=== PATIENT | female | born 1965 | race Caucasian/White ===

== ENCOUNTER 2017-08-15 15:39 | Emergency (ER) | payer SELFPAY ==
[2017-08-15 16:01] VITALS: BP 117/67
--- NOTE | 2017-08-15 16:07 | ED ---
Upper Extremity Pain - HPI Summary HPI Summary: 52 year old female presents with complains of right ankle pain/swelling and left hand pain after falling at work. - History of Current Complaint Chief Complaint: UCLowerExtremity Stated Complaint: FINGER INJURY Time Seen by Provider: 08/15/17 16:04 Hx Obtained From: Patient Mechanism Of Injury: Blunt Trauma, Fall From A Standing Position Onset/Duration: Started Hours Ago Timing: Constant Severity Initially: Moderate Severity Currently: Moderate - Allergies/Home Medications Allergies/Adverse Reactions: Allergies Allergy/AdvReac Type Severity Reaction Status Date / Time No Known Allergies Allergy Verified 08/15/17 16:01 PMH/Surg Hx/FS Hx/Imm Hx Endocrine/Hematology History: Denies: Hx Diabetes, Hx Thyroid Disease Cardiovascular History: Denies: Hx Hypertension, Hx Pacemaker/ICD Respiratory History: Denies: Hx Asthma, Hx Chronic Obstructive Pulmonary Disease (COPD) GI History: Denies: Hx Ulcer History: Denies: Hx Renal Disease Sensory History: Denies: Hx Hearing Aid Psychiatric History: Denies: Hx Panic Disorder - Surgical History Surgery Procedure, Year, and Place: X2 _ 2ND C SECTION ALSO HAD A TUBAL LIGATION. FOOT - as a child - STEPPED ON A NAIL Infectious Disease History: No Infectious Disease History: Denies: Hx Clostridium Difficile, Hx Hepatitis, Hx Human Immunodeficiency Virus (HIV), Hx of Known/Suspected MRSA, Hx Shingles, Hx Tuberculosis, Hx Known/ Suspected VRE, Hx Known/Suspected VRSA, History Other Infectious Disease, Traveled Outside the [place] in Last 30 Days - Family History Known Family History: Positive: Hypertension - Social History Alcohol Use: Rare Substance Use Type: Reports: None Smoking Status (MU): Never Smoked Tobacco Review of Systems Constitutional: Negative Eyes: Negative ENT: Negative Cardiovascular: Negative Respiratory: Negative Gastrointestinal: Negative Genitourinary: Negative Positive: Other - right ankle pain, left hand pain All Other Systems Reviewed And Are Negative: Yes Physical Exam Triage Information Reviewed: Yes Vital Signs On Initial Exam: Initial Vitals Temp Pulse Resp BP Pulse Ox 36.7 C 85 18 117/67 100 08/15/17 15:56 08/15/17 15:56 08/15/17 15:56 08/15/17 15:56 08/15/17 15:56 Vital Signs Reviewed: Yes Appearance: Positive: Well-Appearing Skin: Positive: Warm Head/Face: Positive: Normal Head/Face Inspection Eyes: Positive: Normal ENT: Positive: Normal ENT inspection Neck: Positive: Supple Respiratory/Lung Sounds: Positive: Clear to Auscultation Cardiovascular: Positive: Normal, S4 Musculoskeletal: Positive: Other - right ankle pain/swelling left hand pain Diagnostics - Vital Signs Vital Signs Temp Pulse Resp BP Pulse Ox 08/15/17 15:56 36.7 C 85 18 117/67 100 - Laboratory Lab Statement: Any lab studies that have been ordered have been reviewed, and results considered in the medical decision making process. Course/Dx - Diagnoses Provider Diagnoses: Right ankle sprain, Left hand pain Discharge - Discharge Plan Condition: Stable Disposition: HOME Prescriptions: Meloxicam [Mobic] 7.5 mg PO BID PC #30 tab Patient Education Materials: Ankle Sprain (ED), Hand Sprain (ED) Forms: *Work Release Referrals: Davon Villa MD [Medical Doctor] - Rodney Polanco MD [Medical Doctor] -
--- NOTE | 2017-08-15 16:36 | RAD ---
INDICATION: Right ankle injury. Fall. COMPARISON: None TECHNIQUE: AP, lateral, and oblique views were obtained. FINDINGS: The bony structures, joint spaces, and soft tissues are normal for age. IMPRESSION: NO ACUTE FRACTURE.
--- NOTE | 2017-08-15 16:38 | RAD ---
INDICATION: Right foot pain COMPARISON: None TECHNIQUE: AP, lateral, and oblique views were obtained. FINDINGS: The bony structures, joint spaces, and soft tissues are normal for age. IMPRESSION: NO ACUTE BONY FINDINGS.
--- NOTE | 2017-08-15 16:38 | RAD ---
INDICATION: Left hand injury. Fall. COMPARISON: None TECHNIQUE: AP, lateral, and oblique views were obtained. FINDINGS: The bony structures, joint spaces, and soft tissues are normal for age. IMPRESSION: NEGATIVE EXAMINATION.
== END 2017-08-15 16:55 | disposition home or self-care (01) ==
LOC: UCEAST 15:39
DX: S93.401A Sprain of unspecified ligament of right ankle, initial encounter (principal); W18.30XA Fall on same level, unspecified, initial encounter; Y93.9 Activity, unspecified; Y92.89 Other specified places as the place of occurrence of the external cause; Y99.0 Civilian activity done for income or pay; M79.642 Pain in left hand
CPT/HCPCS: 99213; G0463

== ENCOUNTER 2019-04-29 10:47 | Day surgery (SDC) | payer BC, OTHER ==
[~2019-04-29 10:47] MED LIST: Buffered Lidocaine 1% SYRIN* 1 ML/SYRINGE INTRADERM ONE; Lactated Ringers 1000 ML Bag* 1,000 ML IV SCH; Sodium Citrate/Citric Acid* 15 ML UDC PO ONE
[2019-04-29] MEDS ORDERED: Buffered Lidocaine 1% SYRIN* 1 ML/SYRINGE INTRADERM ONE (11:21)
[2019-04-29] MEDS ORDERED: Sodium Citrate/Citric Acid* 15 ML UDC ONE (11:21)
[2019-04-29] MEDS ORDERED: Succinylcholine* 20 MG/ML 10 ML VIAL ONE (12:58)
[2019-04-29] MEDS ORDERED: Gelfoam 12-7 ADSORBABL SPONGE* 1 EA SPONGE ONE (13:03)
[2019-04-29] MEDS ORDERED: Ofloxacin 0.3% (Ear Drop)* 5 ml BTL ONE (13:03)
[2019-04-29] MEDS ORDERED: Lidocaine 2% EPI 1:200000 MPF*10-20 ML VIAL ONE (13:19)
[2019-04-29] MEDS ORDERED: Propofol* 10 MG/ML 20 ML BTL ONE (13:20)
[2019-04-29] MEDS ORDERED: fentaNYL* 50 MCG/ML 2 ML VIAL (100 MCG VIAL) ONE ×2 (13:22→14:50)
[2019-04-29] MEDS ORDERED: Lidocaine 2% PF * 5 ML VIAL ONE (13:27)
[2019-04-29] MEDS ORDERED: EPINEPHRINE 1 MG/ML 1 ML VIAL ONE (13:42)
[2019-04-29] MEDS ORDERED: fentaNYL* 50 MCG/ML 2 ML VIAL (100 MCG VIAL) IV PRN (14:02)
[2019-04-29] MEDS ORDERED: Naloxone* 0.4 MG/ML 1 ML VIAL IV PRN (14:02)
[2019-04-29] MEDS ORDERED: Ondansetron INJ* 2 MG/ML VIAL IV PRN (14:02)
[2019-04-29] MEDS ORDERED: Phenylephrine 0.5% NASAL* BTL ONE (14:23)
[2019-04-29] MEDS ORDERED: Labetalol IV* 5 MG/ML 20 ML VIAL ONE (14:58)
[2019-04-29 15:48] VITALS: BP 144/82
--- NOTE | 2019-04-29 18:36 | OP ---
OPERATIVE REPORT: DATE OF OPERATION: 04/29/19 - SDS DATE OF : [birth year] SURGEON: Francisco Johnson MD ANESTHESIOLOGIST: Antonio Gutierrez DO ANESTHESIA: General. PRE-OP DIAGNOSIS: Right ear tympanic membrane perforation. POST-OP DIAGNOSIS: Right ear tympanic membrane perforation. OPERATIVE PROCEDURE: Right ear tympanoplasty with graft and submucosal resection of inferior turbinates. BRIEF HISTORY: This 53-year-old with history of right ear tympanic membrane perforation with symptoms of otorrhea occasionally. Persistent nasal congestion with difficulty breathing through the nose with nasal dyspnea without a deviated septum and hypertrophied turbinates, not improving with medical management. DESCRIPTION OF PROCEDURE: The patient was taken to the operating room, general anesthetic was given, the patient was intubated with an LMA. The ear was then examined under microscope. Perforation was noted. Margins of the perforation were fashioned up and the epithelium elevated. I then harvested a right cartilage conchal graft. This was shaped to 1.5 mm. The rest of the cartilage was then replaced in the conchal bowl and the incision was closed in a single layer. The middle ear was packed with Gelfoam and then subsequently underlay technique was used to place the graft. Further Gelfoam was placed laterally. Once the adequate packing was carried, the area was packed with ofloxacin ear drops and then a cotton ball was applied. We then turned our attention to the nose. Submucosal resection carried out using the Elmed forceps. Small incision was made. Submucosal elevation was carried out and subsequently the cauterization of the submucosal tissue including the inferior turbinate bone on both sides. Once this was done, the patient was then awakened, extubated, and sent to recovery room in stable condition. Instrument and sponge counts were correct. Blood loss minimal. [id number]/[facility] #: [id number] MTDD
== END 2019-04-29 16:00 | disposition home or self-care (01) ==
LOC: OR 10:47
PROVIDERS: ATTEND Otolaryngology
DX: H72.01 Central perforation of tympanic membrane, right ear (principal); J34.3 Hypertrophy of nasal turbinates; J31.0 Chronic rhinitis
CPT/HCPCS: A9270-GY; J0330; J2704; J3010

== ENCOUNTER 2019-10-09 06:07 | Emergency (ER) | payer BC ==
[2019-10-09] MEDS ORDERED: NS 0.9% 1000 ML** 1,000 ML IV ONE ×2 (06:17→08:27)
--- NOTE | 2019-10-09 06:17 | ED ---
Dizziness - HPI Summary HPI Summary: Patient is a 54-year-old male who presents emergency department for vertigo 3 days. Patient states she has a history of vertigo. Patient states she had tympanostomy tubes in the past and states that the whole and tympanic membrane never healed causing her vertigo. Patient states she had hole removed in April by ENT. Patient denies past medical history. Symptoms are moderate in severity. Associated symptoms of vomiting and headache. Patient denies chest pain, shortness of breath comes, tingling or weakness. Symptoms are moderate in severity. No current modifying factors. - History Of Current Complaint Chief Complaint: EDDizziness Stated Complaint: VERITGO PER PT Time Seen by Provider: 10/09/19 06:17 Hx Obtained From: Patient - Allergies/Home Medications Allergies/Adverse Reactions: Allergies Allergy/AdvReac Type Severity Reaction Status Date / Time No Known Allergies Allergy Verified 04/29/19 11:28 Home Medications: Home Medications Citalopram TAB* [CeleXA TAB*] 20 mg PO DAILY 10/09/19 [History Confirmed ] PMH/Surg Hx/FS Hx/Imm Hx Previously Healthy: Yes Endocrine/Hematology History: Denies: Hx Diabetes, Hx Thyroid Disease Cardiovascular History: Reports: Hx Valvular 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 PRINTER-FOUND WHILE 30 YRS AGO- NO F/U PER P Denies: Hx Hypertension, Hx Pacemaker/ICD, Other Cardiovascular Problems/ Disorders Respiratory History: Denies: Hx Asthma, Hx Chronic Obstructive Pulmonary Disease (COPD), Other Respiratory Problems/Disorders GI History: Denies: Hx Ulcer History: Denies: Hx Renal Disease Sensory History: Reports: Hx Contacts or Glasses - GLASSES-REPORTS DOES NOT WEAR Denies: Hx Hearing Aid Opthamlomology History: Reports: Hx Contacts or Glasses - GLASSES-REPORTS DOES NOT WEAR Neurological History: Reports: Other Neuro Impairments/Disorders - HX OF VERTIGO - LAST ABOUT 6 MONTHS AGO Psychiatric History: Denies: Hx Panic Disorder - Surgical History Surgery Procedure, Year, and Place: X2 _ 2ND C SECTION ALSO HAD A TUBAL [id number]. FOOT - as a child - STEPPED ON A NAIL-. RIGHT OVARY [id number]. RIGHT EAR TUBE PLACED-[facility]- OFFICE Hx Anesthesia Reactions: No Infectious Disease History: No Infectious Disease History: Denies: Hx Clostridium Difficile, Hx Hepatitis, Hx Human Immunodeficiency Virus (HIV), Hx of Known/Suspected MRSA, Hx Shingles, Hx Tuberculosis, Hx Known/ Suspected VRE, Hx Known/Suspected VRSA, History Other Infectious Disease, Traveled Outside the US in Last 30 Days - Family History Known Family History: Positive: Hypertension, Non-Contributory - Social History Occupation: Employed Full-time Lives: With Family Alcohol Use: None Substance Use Type: Reports: None Smoking Status (MU): Never Smoked Tobacco Have You Smoked in the Last Year: No Review of Systems Constitutional: Negative Negative: Fever, Chills Eyes: Negative ENT: Negative Cardiovascular: Negative Negative: Palpitations, Chest Pain Respiratory: Negative Positive: Vomiting, Nausea. Negative: Abdominal Pain Genitourinary: Negative Musculoskeletal: Negative Skin: Negative Neurological: Other - vertigo Positive: Headache All Other Systems Reviewed And Are Negative: Yes Physical Exam Triage Information Reviewed: Yes Vital Signs On Initial Exam: Initial Vitals Temp Pulse Resp BP Pulse Ox 98.0 F 78 18 185/109 97 10/09/19 06:09 10/09/19 06:09 10/09/19 06:09 10/09/19 06:09 10/09/19 06:09 Vital Signs Reviewed: Yes Appearance: Positive: Well-Nourished - Pt. sitting on side of bed vomiting when I walked into room. Skin: Positive: Warm, Dry Head/Face: Positive: Normal Head/Face Inspection Eyes: Positive: Normal, EOMI, HARRIS, Conjunctiva Clear Neck: Positive: Supple Respiratory/Lung Sounds: Positive: Clear to Auscultation, Breath Sounds Present Cardiovascular: Positive: Normal, RRR Musculoskeletal: Positive: Normal, Strength/ROM Intact Neurological: Positive: Normal, Alert, Oriented to Person Place, Time, CN Intact II-III Psychiatric: Positive: Affect/Mood Appropriate Procedures - Sedation Patient Received Moderate/Deep Sedation with Procedure: No Diagnostics - Vital Signs Vital Signs Temp Pulse Resp BP Pulse Ox 10/09/19 06:09 98.0 F 78 18 185/109 97 - Laboratory Result Diagrams: 10/09/19 07:09 10/09/19 07:09 Lab Statement: Any lab studies that have been ordered have been reviewed, and results considered in the medical decision making process. Dizzy Course/Dx - Course Course Of Treatment: Pt. presenting with vertigo x 3 days and a hx of vertigo. BP mildly elevated. No neuro deficits on exam. Meclizine, zofran and IV fluids ordered. Pening labs and ecg. ECG done at 0646 shows a sinus rhythm of 71bpm, normal axis, no ST elevation or depression. 0825: Pt. notes she is feeling a bit better and dizziness and h/a have improved. Pt. notes dizziness is worse when she closes her eyes. Pt. was ambulatory to the restroom but notes increased in sxs after walking. No ataxia. Labs show elevated glucose at 227. U/ A shows trace ketones and glucose. Labs otherwise unremarkable. BP improved. Will give another liter of fluids and tylenol. 0915: Pt. re-examined and is feeling a lot better. Pt. got up easily to bed and ambulated to bathroom down hallway. No ataxia or difficulty. BP improved 133/67. Will dc home with meclizine and zofran. To f.u with pcp in 2-3 days. Pt. notes her glucose has been running high. To increase fluids. To return to ER if sxs change or worsen. Pt. understands and agrees with plan. - Diagnoses Differential Diagnosis/HQI/PQRI: Benign Paroxysmal Positional Vertigo, CVA, Dysrhythmia, Meniere's Disease, Metabolic Abnormality Provider Diagnoses: Vertigo Discharge ED - Sign-Out/Discharge Documenting (check all that apply): Patient Departure - Discharge Plan Condition: Improved Disposition: HOME Prescriptions: Meclizine HCl [Dramamine Less Drowsy] 25 mg PO TID #20 tablet Ondansetron TAB* [Zofran 4 MG Tab*] 4 mg PO Q6H PRN #12 tab PRN Reason: Nausea Patient Education Materials: Vertigo (ED) Referrals: Echo Cadet MD [Medical Doctor] - Additional Instructions: Schedule follow up appointment with your PCP within 2-3 days for recheck Medication as directed Increase fluids and rest Change positions slowly Return to ER if symptoms change or worsen - Billing Disposition and Condition Condition: IMPROVED Disposition: Home - Attestation Statements Provider Attestation: I was available for consult. This patient was seen by the [facility]. The patient was not presented to, seen by, or examined by me. Scotty Morrison MD
--- OUTSIDE RECORDS SUMMARY | 2019-10-09 06:18 | XMS REPORT | Summary of Care ---
:1965 Author Organization [facility] Address [address] [place] [address] Care Team Providers Name Role Phone Echo Cadet Primary Care Provider Reason for Visit Reason Comments Depression Pt c/o difficulty sleeping, eating and very weepy since in July. Encounter Details Date Type Department Care Team Description 09/01/2019 Office Visit [place] Aleja Carranza, Depression, unspecified depression type (Primary Dx); Practice [facility] Grief reaction [address] [place] [address] [phone] Allergies No Known Allergiesdocumented as of this encounter (statuses as of 09/01/2019) Medications Medication Sig Dispensed Refills Start Date End Date Status ofloxacin (OCUFLOX) 0.3 1 Drop FOUR 0 Active % Ophthalmic Solution TIMES DAILY. ipratropium (ATROVENT) [place] 2 0 Active 0.06 % Nasal Solution Sprays in nose TWICE DAILY. citalopram (CELEXA) 20 Take 1 Tab 30 Tab 1 09/01/2019 Active MG Oral Tab by mouth DAILY. meclizine (ANTIVERT) 25 Take 25 mg 0 Discontinued MG Oral Tab by mouth 9 THREE TIMES DAILY NEEDED. hydrochlorothiazide Take 25 mg 0 Discontinued (HCTZ, ORETIC) 25 MG by mouth 9 Oral Tab DAILY. documented as of this encounter (statuses as of 09/01/2019) Active Problems Problem Noted Date Meniere's disease 07/02/2008 Overview: dx in [place] and followed by local nurologist in [place] since 2013--Dr. Polanco documented as of this encounter (statuses as of 09/01/2019) Social History Tobacco Use Types Packs/Day Years Used Date Never Smoker 0 Smokeless Tobacco: Never Used Alcohol Use Drinks/Week oz/Week Comments Yes 0 Standard drinks or equivalent 0.0 rare Sex Assigned at Date Recorded Not on file Job Start Date Occupation Industry Not on file Not on file Not on file Travel History Travel Start Travel End No recent travel history available. documented as of this encounter Last Filed Vital Signs Vital Sign Reading Time Taken Comments Blood Pressure 110/82 09/01/2019 8:15 AM EDT Pulse 64 09/01/2019 8:15 AM EDT Temperature - - Respiratory Rate - - Oxygen Saturation - - Inhaled Oxygen Concentration - - Weight 68 kg (150 lb) 09/01/2019 8:15 AM EDT Height 154.9 cm (5' 1") 09/01/2019 8:15 AM EDT Body Mass Index 28.34 09/01/2019 8:15 AM EDT documented in this encounter Patient Instructions Patient InstructionsAleja Meza FNP - 09/01/2019 8:20 AM EDTStart Celexa - use 1/2 pill for first 6 days then start whole pill Counseling recommended - check Hospice Follow up 4-6 weeks documented in this encounter Progress Notes Aleja Meza FNP - 09/01/2019 8:20 AM EDT PATIENT: Lexie Tavarez : 1965 DATE OF SERVICE: 09/01/2019 CHIEF COMPLAINT: Chief Complaint Patient presents with Depression Pt c/o difficulty sleeping, eating and very weepy since in July. Subjective HISTORY OF PRESENT ILLNESS: Lexie Tavarez is a 54-y.o. female. HPI New(returning) pt to office - c/o depression since spouse in July Past Medical History: Diagnosis Date Meniere's disease jul 2008 dx in [place] and followed by local nurologist in [place] since 2013--Dr. Polanco History reviewed. No pertinent family history. Current Outpatient Medications Medication Sig citalopram (CELEXA) 20 MG Oral Tab Take 1 Tab by mouth DAILY. ipratropium (ATROVENT) 0.06 % Nasal Solution Pendleton 2 Sprays in nose TWICE DAILY. ofloxacin (OCUFLOX) 0.3 % Ophthalmic Solution 1 Drop FOUR TIMES DAILY. No current facility-administered medications for this visit. No Known Allergies Social History Socioeconomic History Marital status: Spouse name: Not on file Number of children: Not on file Years of education: Not on file Highest education level: Not on file Occupational History Not on file Social Needs Financial resource strain: Not on file Food insecurity: Worry: Not on file Inability: Not on file Transportation needs: Medical: Not on file Non-medical: Not on file Tobacco Use Smoking status: Never Smoker Smokeless tobacco: Never Used Substance and Sexual Activity Alcohol use: Yes Alcohol/week: 0.0 standard drinks Comment: rare Drug use: No Sexual activity: Yes Partners: Male Lifestyle Physical activity: Days per week: Not on file Minutes per session: Not on file Stress: Not on file Relationships Social connections: Talks on phone: Not on file Gets together: Not on file Attends [employer] service: Not on file Active member of club or organization: Not on file Attends meetings of clubs or organizations: Not on file Relationship status: Not on file Intimate partner violence: Fear of current or ex partner: Not on file Emotionally abused: Not on file Physically abused: Not on file Forced sexual activity: Not on file Other Topics Concern Back Care Not Asked Bike Helmet Not Asked Blood Transfusions No Caffeine Concern Not Asked Exercise No Comment: none 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 [employer] Hobby Hazards Not Asked International Travel Not Asked Service Not Asked Occupational Exposure Not Asked Seat Belt Not Asked Self-Exams Not Asked Sleep Concern Not Asked Special Diet Not Asked Stress Concern Not Asked Weight Concern Not Asked Social History Narrative 2 adult children 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 [employer] Pets: dog Over the last 2 weeks, have you been feeling down, depressed, anxious, or hopeless?: 2 Over the past 2 weeks, have you felt little interest or pleasure in doing things ?: 3 Trouble falling or staying asleep, or sleeping too much?: 3 Feeling tired or having little energy?: 3 Poor appetite or overeating?: 3 Feeling bad about yourself or that you are a failure or have let yourself or your family down?: 0 Trouble concentrating on things, such as reading the newspaper or watching TV?: 1 Moving or speaking so slowly that other people notice OR being fidgety and restless?: 1 Thoughts that you would be better off or of hurting yourself in some way?: 0 PHQ-9 TOTAL SCORE: 16 How difficult have these problems made it for you to do your work, take care of things at home or get along with people?: Very difficult In the past 2 years, have you felt depressed or sad most days, even if you felt ok?: Yes REVIEW OF SYSTEMS: Review of Systems Psychiatric/Behavioral: Positive for depression. Negative for hallucinations, substance abuse and suicidal ideas. The patient is nervous/anxious and has insomnia. Objective PHYSICAL EXAM: VITALS: BP 110/82 | Pulse 64 | Ht 5' 1" (1.549 m) | Wt 150 lb (68 kg) | BMI 28.34 kg/m Body mass index is 28.34 kg/m. Physical Exam Vitals signs reviewed. Constitutional: Appearance: Normal appearance. Skin: General: Skin is warm and dry. Neurological: Mental Status: She is alert and oriented to person, place, and time. Psychiatric: Attention and Perception: Attention normal. Mood and Affect: Mood is depressed. Speech: Speech normal. Behavior: Behavior is not agitated or aggressive. Thought Content: Thought content is not delusional. Thought content does not include homicidal orsuicidal plan. Comments: Hx post depression - limited to a few weeks - on meds but doesn't recall what. Weepy today. Feels alone - no family support - has daughter in [place] and another son locally, several step children. Sx daily - crying, no appetite - has lost 145 lbs since of spouse. 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 Pt willing to try counseling - also would like medication - meds discussed - will start Celexa - advised to take at bedtime as may help with sleep. Counseling encouraged - can try Hospice for grief counseling. Pt to follow up in 4-6 weeks - sooner if any problems ASSESSMENT / IMPRESSION: ICD-9-CM ICD-10-CM 1. Depression, unspecified depression type 311 F32.9 2. Grief reaction 309.0 F43.21 Plan Start Celexa - use 1/2 pill for first 6 days then start whole pill Counseling recommended - check Hospice Follow up 4-6 weeks 30 minutes spent with patient, greater than 50% of time in [id number] counseling and discussion ofdepression, medications and follow up Author: GURU Landers 09/01/2019 09:01 documented in this encounter Plan of Treatment Date Type Specialty Care Team Description 10/02/2019 Office Visit Family Practice Echo Cadet MD [address] [place] [address] Health Maintenance Due Date Last Done Comments PAP SMEAR 1965 MAMMOGRAM (SCREENING) 2007 DIABETES SCREENING 03/14/2017 03/14/2016, 03/08/2016 COLONOSCOPY SCREENING 2017 ZOSTER IMMUNIZATION SERIES (1 2017 of 2) INFLUENZA VACCINE (#1) 2019 DEPRESSION SCREENING 09/01/2020 09/01/2019, 09/01/2019 LIPID DISORDER SCREENING 03/08/2021 03/08/2016 HPV IMMUNIZATION SERIES Aged Out No longer eligible based on patient's age to complete this topic MENINGOCOCCAL VACCINE IMM Aged Out No longer eligible based on patient's age to complete this topic PNEUMOCOCCAL 0-64 YRS Aged Out No longer eligible based on patient's age to complete this topic documented as of this encounter Results Not on filedocumented in this encounter Visit Diagnoses Diagnosis Depression, unspecified depression type - Primary Grief reaction Adjustment disorder with depressed mood documented in this encounter Insurance Payer Benefit Plan / Subscriber ID Effective Dates Phone Address Type Group BS NATIONAL [facility] NATIONAL xxxxxxxxxxxx 2018-Present Blue [employer] documented as of this encounter
--- OUTSIDE RECORDS SUMMARY | 2019-10-09 06:18 | XMS REPORT | Summary of Care ---
:1965 Author Organization [facility] Address [address] [place] [address] Care Team Providers Name Role Phone Echo Cadet Primary Care Provider Reason for Referral MRI/CAT/PET Scan (Routine) Status Reason Specialty Diagnoses / Referred By Referred To Procedures Contact Contact Pending Review Diagnoses Bulky or enlarged uterus Galcarroll, Procedures US PELVIC COMPLETE WITH EV PROBE MD [facility] [place] [address] Reason for Visit Reason Comments Establish Care physical with pap, pt c/o dry vigina with itch Encounter Details Date Type Department Care Team Description 10/02/2019 Office Visit Raheel Peterson female exam with routine gynecological exam (Primary Dx); Practice MD Echo Vitiligo; [address] [place] [address] FH: factor V Leiden mutation; [place] [address] [place] [address] Screening mammogram, encounter for; [phone] Bulky or enlarged uterus; [phone] Colon cancer screening (Fax) Allergies No Known Allergiesdocumented as of this encounter (statuses as of 10/02/2019) Medications Medication Sig Dispensed Refills Start Date End Date Status citalopram (CELEXA) Take 1 Tab by 30 Tab 1 09/01/2019 Active 20 MG Oral Tab mouth DAILY. ofloxacin (OCUFLOX) 1 Drop FOUR 0 10/02/2019 Discontinued 0.3 % Ophthalmic TIMES DAILY. Solution ipratropium [place] 2 0 10/02/2019 Discontinued (ATROVENT) 0.06 % Sprays in Nasal Solution nose TWICE DAILY. documented as of this encounter (statuses as of 10/02/2019) Active Problems Problem Noted Date Meniere's disease 07/02/2008 Overview: dx in [place] and followed by local nurologist in [place] since 2013--Dr. Polanco documented as of this encounter (statuses as of 10/02/2019) Social History Tobacco Use Types Packs/Day Years [...] Sign Reading Time Taken Comments Blood Pressure 110/70 10/02/2019 9:04 AM EDT Pulse 71 10/02/2019 9:04 AM EDT Temperature 36.8 10/02/2019 9:04 AM EDT C (98.3 F) Respiratory Rate - - Oxygen Saturation 98% 10/02/2019 9:04 AM EDT Inhaled Oxygen Concentration - - Weight 66 kg (145 lb 9.6 oz) 10/02/2019 9:04 AM EDT Height 160 cm (5' 3") 10/02/2019 9:04 AM EDT Body Mass Index 25.79 10/02/2019 9:04 AM EDT documented in this encounter Patient Instructions Patient InstructionsEcho Cadet MD - 10/02/2019 9:00 AM EDT1. Schedule Mammo-, pelvic US 2. Will make referral for Cologuard test 3 Use Cortisol cream as needed for vulva itching documented in this encounter Progress Notes Echo Cadet MD - 10/02/2019 9:00 AM EDT Patient: Lexie Tavarez Date of Service: 10/02/2019 Subjective: Lexie Tavarez is a 54-y.o. female who presents for Chief Complaint Patient presents with Establish Care physical with pap, pt c/o dry vigina with itch Seen recently for depression, grieving Started on Celexa with improvement Tolerates the medication well Complains of vaginal dryness and itchiness Past Medical History: Diagnosis Date Depression Meniere's disease 07/2008 Dr. Santiago Outpatient Medications as of 10/02/2019 Medication Sig Dispense Refill citalopram (CELEXA) 20 MG Oral Tab Take 1 Tab by mouth DAILY. 30 Tab 1 No current facility-administered medications on file as of 10/02/2019. No Known Allergies Review of Systems: All remaining review of systems was negative. Objective: BP 110/70 (BP Location: Left arm, Patient Position: Sitting) Pulse 71 Temp 98.3 F (36.8 C) Ht 5' 3" (1.6 m) Wt 145 lb 9.6 oz (66 kg) SpO2 98% BMI 25.79 kg/m2 GENERAL: alert, no distress HEAD: normocephalic, without obvious abnormality EYES: conjunctivae/corneas clear. Pupils equal, round, reactive to light. Equal ocular movements intact. EARS: normal tympanic membranes and external ear canals, bilaterally NOSE: Nares normal. Septum midline. Mucosa normal. No drainage or sinus tenderness. THROAT: lips, mucosa, and tongue normal: teeth and gums normal NECK: supple, symmetrical, trachea midline, no adenopathy and thyroid: not enlarged, symmetric, notenderness/mass/nodules BACK: negative LUNGS: clear to auscultation bilaterally BREASTS: normal appearance, no masses or tenderness HEART: regular rate and rhythm, S1, S2 normal, no murmur, click, rub or gallop ABDOMEN: soft, non-tender. Bowel sounds normal. No masses, no organomegaly PELVIC: Pelvic exam: external genitalia normal, urethra without abnormality or discharge. Speculum exam: vagina - atrophic changes, cervix - stenotic endocervical canal. PAP done Bimanual exam: uterus - enlarged, bulky, no adnexal masses or tenderness. EXTREMITIES: extremities normal, atraumatic, no cyanosis or edema PULSES: 2+ and symmetric SKIN: Skin color, texture, turgor normal. Vitiligo LYMPH NODES: cervical, supraclavicular, and axillary nodes normal. NEUROLOGIC: Grossly normal ICD-9-CM ICD-10-CM 1. Well female exam with routine gynecological exam V72.31 Z01.419 COMPREHENSIVE METABOLIC PANEL LIPID PROFILE PAP SMEAR THINPREP W/ REFLEX HPV 2. Vitiligo 709.01 L80 THYROID STIMULATING HORMONE FREE T4 3. FH: factor V Leiden mutation V18.3 Z83.2 FACTOR 5 LEIDEN MUTATION W/ HR2 REFLEX 4. Screening mammogram, encounter for V76.12 Z12.31 MAMMO SCREENING TOMOSYNTHESIS BILATERAL 5. Bulky or enlarged uterus 621.2 N85.2 US PELVIC COMPLETE WITH EV PROBE 6. Colon cancer screening V76.51 Z12.11 COLOGUARD STOOL DNA TEST (EXTERNAL) Patient Instructions 1. Schedule Mammo-, pelvic US 2. Will make referral for Cologuard test 3 Use Cortisol cream as needed for vulva itching Author: Echo Caedt MD documented in this encounter Plan of Treatment Date Type Specialty Care Team Description 10/28/2019 Ancillary Procedure Radiology 10/28/2019 Ancillary Procedure Radiology Name Type Priority Associated Diagnoses Order Schedule COMPREHENSIVE Lab Routine Well female exam with Ordered: METABOLIC PANEL routine gynecological 10/02/2019 exam LIPID PROFILE Lab Routine Well female exam with Ordered: routine gynecological 10/02/2019 exam THYROID STIMULATING Lab Routine Vitiligo Ordered: HORMONE 10/02/2019 FREE T4 Lab Routine Vitiligo Ordered: 10/02/2019 FACTOR 5 LEIDEN Lab Routine FH: factor V Leiden Ordered: MUTATION W/ HR2 REFLEX mutation 10/02/2019 MAMMO SCREENING Imaging Routine Screening mammogram, Expected: TOMOSYNTHESIS encounter for 10/02/2019, BILATERAL Expires: 12/30/2020 US PELVIC COMPLETE Imaging Routine Bulky or enlarged Expected: WITH EV PROBE uterus 10/02/2019, Expires: 10/01/2020 PAP SMEAR THINPREP W/ Lab Routine Well female exam with Ordered: REFLEX HPV routine gynecological 10/02/2019 exam COLOGUARD STOOL DNA Lab - Exact Routine Colon cancer Ordered: TEST (EXTERNAL) Sciences screening 10/02/2019 Health Maintenance Due Date Last Done Comments [...] this topic documented as of this encounter Goals Goal Patient Goal Associated Recent Patient-Stated? Author Type Problems Progress Depression Depression 16 No Helio screen (PHQ-9) (09/01/2019 Echo, total score < 5 8:18 AM EDT) Note: This is an individualized treatment (depression) goal for Lexie Tavarez: Displayed above is your goal for a depression screening (PHQ-9) score that would indicate good control of your depression. Keep a regular sleep schedule Lifestyle No Echo Cadet MD Note: This is an individualized lifestyle goal for Lexie Natashaastrid: Please maintain a regular sleep schedule. This may help with some symptoms of depression. Take all prescribed medications as Self-management Echo Shirley MD directed Note: This is an individualized self-management goal for Lexie Tavarez: Please take all prescribed medications as directed. 1. Do not skip doses. If you cannot afford your medications, talk with your doctor. 2. Use a pill reminder system such as a pill box if needed. Your pharmacist can help you with this. 3. Contact your Pharmacy 5 days before your medication runs out. If you cannot take your medications for any reasons, talk with your doctor. 4. Please bring all of your medication bottles and inhalers (or a list of all your medications/inhalers) with you to every visit. Potential barriers to meeting all of your care plan goals will continue to be addressed on an ongoing basis. documented as of this encounter Results Not on filedocumented in this encounter Visit Diagnoses Diagnosis Well female exam with routine gynecological exam - Primary Routine gynecological examination Vitiligo FH: factor V Leiden mutation Family history of other blood disorders Screening mammogram, encounter for Bulky or enlarged uterus Hypertrophy of uterus Colon cancer screening Special screening for malignant neoplasms, colon documented in this encounter Insurance Payer Benefit Plan / Subscriber ID Effective Dates Phone Address Type Group [facility] xxxxxxxxxxxx 2018-Present [employer] documented as of this encounter
[2019-10-09] MEDS ORDERED: Ondansetron INJ* 2 MG/ML VIAL IV ONE (06:19)
[2019-10-09] MEDS ORDERED: Meclizine TAB* 12.5 MG PO ONE (06:19)
[2019-10-09 07:10] LABS: Urine Appearance Clear; Urine Bacteria Absent (Absent); Urine Bilirubin Negative (Negative); Urine Blood Negative (Negative); Urine Color Yellow; Urine Glucose 3+(>=500 mg/dL) (Negative); Urine Ketones Trace (Negative); Urine Nitrite Negative (Negative); Urine Protein Negative (Negative); Urine Red Blood Cell Trace(0-2/hpf) (Absent); Urine Specific Gravity 1.024 (1.010-1.030); Urine Squamous Epithelial Cell Present (Absent); Urine Urobilinogen Negative (Negative); Urine White Blood Cell Trace(0-5/hpf) (Absent)
[2019-10-09 07:27] LABS: INR 0.99 (0.82-1.09)
[2019-10-09 07:31] LABS: Albumin 4.5 g/dL (3.2-5.2); Calcium 9.5 mg/dL (8.6-10.3); Potassium 3.8 mmol/L (3.5-5.0); Total Bilirubin 0.7 mg/dL (0.2-1.0)
[2019-10-09 07:38] LABS: Albumin/Globulin Ratio 2.3 (1-3); BUN/Creatinine Ratio 23.5 (8-20); EGFR African American 89.8 (>60); EGFR Non-African American 74.3 (>60); Total Protein 6.5 g/dL (6.4-8.9)
[2019-10-09 07:40] LABS: Hematocrit 41 % (35-47); Hemoglobin 14.1 g/dL (12.0-16.0); Mean Corpuscular HGB Conc 34 g/dL (31-36); Mean Corpuscular Hemoglobin 28 pg (27-31); Mean Corpuscular Volume 81 fL (80-97); Red Blood Count 5.05 10^6 /uL (3.70-4.87); Red Cell Distribution Width 14 % (10-15); White Blood Count 6.3 10^3/uL (3.5-10.8)
[2019-10-09] MEDS ORDERED: Acetaminophen TAB* 325 MG PO ONE (08:27)
[2019-10-09 08:48] LABS: ABS Basophils 0.1 10^3/ul (0-0.2); ABS Eosinophils 0.1 10^3/ul (0-0.6); ABS Lymphocytes 1.1 10^3/ul (1.0-4.8); ABS Monocytes 0.4 10^3/ul (0-0.8); ABS Neutrophils 4.6 10^3/ul (1.5-7.7); Eosinophil % 1.4 %; Lymphocyte % 17.1 %; Mean Platelet Volume 7.6 fL (7.4-10.4); Nucleated Red Blood Cells % 0.1; Platelet Count 237 10^3/uL (150-450)
[2019-10-09 09:51] VITALS: BP 133/67
== END 2019-10-09 10:08 | disposition home or self-care (01) ==
LOC: ED 06:07
DX: R42 Dizziness and giddiness (principal); I51.89 Other ill-defined heart diseases; Z79.899 Other long term (current) drug therapy; Z98.51 Tubal ligation status; Z90.721 Acquired absence of ovaries, unilateral
CPT/HCPCS: 36415; 80053; 81003; 81015; 83605; 84484; 85025; 85610; 87086; 93005; 99283; A9270-GY; J2405

== ENCOUNTER 2019-10-11 22:18 | Emergency (ER) | payer BC ==
[2019-10-11 23:21] LABS: ABS Basophils 0.1 10^3/ul (0-0.2); ABS Eosinophils 0.1 10^3/ul (0-0.6); ABS Lymphocytes 1.4 10^3/ul (1.0-4.8); ABS Monocytes 0.4 10^3/ul (0-0.8); ABS Neutrophils 3.6 10^3/ul (1.5-7.7); Eosinophil % 2.6 %; Hematocrit 38 % (35-47); Lymphocyte % 24.8 %; Mean Corpuscular HGB Conc 34 g/dL (31-36); Mean Corpuscular Hemoglobin 27 pg (27-31); Mean Corpuscular Volume 80 fL (80-97); Mean Platelet Volume 7.2 fL (7.4-10.4); Platelet Count 253 10^3/uL (150-450); Red Blood Count 4.74 10^6 /uL (3.70-4.87); Red Cell Distribution Width 14 % (10-15); White Blood Count 5.6 10^3/uL (3.5-10.8)
--- NOTE | 2019-10-11 23:23 | ED ---
Dizziness - HPI Summary HPI Summary: This pt is a 54 y/o female, with hx of vertigo, presenting to [facility] c/o dizziness when turning her head to the left since 10/05/19. Pt describes dizziness as lightheadedness and as almost passing out. She denies feeling room spinning sensation and states it does not feel like her vertigo. Denies syncopal episodes. Additionally pt notes she has right sided neck pain when she turns her head to the left. She describes right shoulder pain radiating up to the right side of the neck. Denies any pain or lightheadedness when turning head to the right. Denies numbness, weakness, or tingling in arms or legs. Denies any pain with breathing. Pt reports nausea today but states not as bad as the last time she was in the ED. Denies any recent injury or fall. Denies heavy lifting. Denies hx of neck problems. Pt was seen in the ED 2 days ago and was discharged home with dx vertigo but she is concerned her symptoms do not feel like vertigo. PMHx: ear tube placed. Pt notes she has not had vertigo since she had surgery to correct ear tube in April 2019. During her last visit to her PCP's office she states her fasting glucose level was 209. Denies hx of DM. Denies allergies to contrast. - History Of Current Complaint Chief Complaint: EDDizziness Stated Complaint: DIZZINESS/NAUSEA PER PT Time Seen by Provider: 10/11/19 23:13 Hx Obtained From: Patient Onset/Duration: Still Present Timing: Days Severity Currently: Moderate Character: Lightheaded, Dizzy Aggravating Factor(s): Change In Head Position - turning head to the left Alleviating Factor(s): Nothing Associated Signs And Symptoms: Positive: Nausea, Other: - POSITIVE: right sided neck pain. NEGATIVE: numbness, weakness, or tingling in arms or legs, syncope. 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-FOUND WHILE 30 YRS AGO- NO F/U PER P Denies: Hx Hypertension, Hx Pacemaker/ICD, Other Cardiovascular Problems/ Disorders Respiratory History: Denies: Hx Asthma, Hx Chronic Obstructive Pulmonary Disease (COPD), Other Respiratory Problems/Disorders GI History: Denies: Hx Ulcer History: Denies: Hx Renal Disease Sensory History: Reports: Hx Contacts or Glasses - GLASSES-REPORTS DOES NOT WEAR Denies: Hx Hearing Aid Opthamlomology History: Reports: Hx Contacts or Glasses - GLASSES-REPORTS DOES NOT WEAR Neurological History: Reports: Other Neuro Impairments/Disorders - HX OF VERTIGO - LAST ABOUT 6 MONTHS AGO Psychiatric History: Denies: Hx Panic Disorder - Surgical History Surgical History: Yes Surgery Procedure, Year, and Place: X2 _ 2ND C SECTION ALSO HAD A TUBAL [id number],1988. FOOT - as a child - STEPPED ON A NAIL-JOVANI. RIGHT OVARY [id number]. RIGHT EAR TUBE PLACED-RUPARELIA- OFFICE Hx Anesthesia Reactions: No Infectious Disease History: No Infectious Disease History: Denies: Hx Clostridium Difficile, Hx Hepatitis, Hx Human Immunodeficiency Virus (HIV), Hx of Known/Suspected MRSA, Hx Shingles, Hx Tuberculosis, Hx Known/ Suspected VRE, Hx Known/Suspected VRSA, History Other Infectious Disease, Traveled Outside the [place] in Last 30 Days - Family History Known Family History: Positive: Hypertension - Social History Alcohol Use: None Substance Use Type: Reports: None Smoking Status (MU): Never Smoked Tobacco Have You Smoked in the Last Year: No Review of Systems Negative: Fever Positive: Nausea. Negative: Vomiting Musculoskeletal: Other - POSITIVE: right sided neck pain Neurological: Other - POSITIVE: dizziness, lightheadedness Negative: Weakness, Paresthesia, Numbness, Syncope All Other Systems Reviewed And Are Negative: Yes Physical Exam - Summary Physical Exam Summary: Appearance: Well-appearing, Well-nourished, lying in bed comfortably Skin: Warm, dry, no obvious rash Eyes: sclera anicteric, no conjunctival pallor ENT: mucous membranes moist, pharynx appears normal Neck: Supple, nontender Respiratory: Clear to auscultation, no signs of respiratory distress Cardiovascular: Normal S1, S2. No murmurs. Normal distal pulses in tibial and radial bilaterally. Abdomen: Soft, nontender, normal active bowel sounds present Musculoskeletal: Focal tenderness along the right medial periscapular muscles extending almost into the trapezius Neurological: A&Ox3, awake and alert, mentation is normal, speech is fluent and appropriate Psychiatric: affect is normal, does not appear anxious or depressed Triage Information Reviewed: Yes Vital Signs On Initial Exam: Initial Vitals Temp Pulse Resp BP Pulse Ox 97.4 F 67 16 154/104 100 10/11/19 22:20 10/11/19 22:20 10/11/19 22:20 10/11/19 22:20 10/11/19 22:20 Vital Signs Reviewed: Yes Procedures - Sedation Patient Received Moderate/Deep Sedation with Procedure: No Diagnostics - Vital Signs Vital Signs Temp Pulse Resp BP Pulse Ox 10/11/19 22:20 97.4 F 67 16 154/104 100 - Laboratory Result Diagrams: 10/11/19 23:13 10/11/19 23:13 Lab Statement: Any lab studies that have been ordered have been reviewed, and results considered in the medical decision making process. - CT Neck CTA CT Interpretation Completed By: Radiologist Summary of CT Findings: IMPRESSION: Normal neck CTA. Dr. Lloyd has reviewed this report. Re-Evaluation - Re-Evaluation First Eval Re-Evaluation Time: 01:53 Comment: Reviewed results with pt. Discussed discharge plan and follow up with PCP. Dizzy Course/Dx - Course Assessment/Plan: Pt is a 54 y/o female, with hx of vertigo, presenting to [facility] c/o dizziness and right sided neck pain when turning her head to the left since 10/05/19. Pt describes dizziness as lightheadedness and as almost passing out. She denies feeling room spinning sensation and states it does not feel like her vertigo. Denies syncopal episodes. Pt recently seen in the ED 2 days ago for the same but states her symptoms are not similar to past vertigo episodes. Lab work was obtained and unremarkable except for glucose of 243. I am concerned about the pre syncopal symptoms she experiences when she turns her head, which makes me wonder about a vascular problem in the neck, such as stenosis or dissection, that could lead to decreased blood flow with postural change. Neck CTA shows normal neck CTA. Pt will be discharged home with follow up from her PCP. She was instructed to return to the ED for any new or worsening symptoms. - Diagnoses Provider Diagnoses: Acute neck pain Discharge ED - Sign-Out/Discharge Documenting (check all that apply): Patient Departure - Discharge home - Discharge Plan Condition: Good Disposition: HOME Patient Education Materials: Acute Neck Pain (ED), Diabetes and Exercise (ED) Referrals: [facility] [address] [Outside] Additional Instructions: Contact your PCP tomorrow to get in for further evaluation of your blood sugars as well as your neck. - Billing Disposition and Condition Condition: GOOD Disposition: Home - Attestation Statements Document Initiated by Scribe: Yes Documenting Scribe: Amber Sánchez Provider For Whom Antwan is Documenting (Include Credential): Koffi Lloyd MD Scribe Attestation: Amber Rhodes, scribed for Koffi Lloyd MD on 10/12/19 at 1819. Scribe Documentation Reviewed: Yes Provider Attestation: The documentation as recorded by the Amber ray accurately reflects the service I personally performed and the decisions made by me, Koffi Lloyd MD Status of Scribe Document: Viewed
[2019-10-11 23:41] LABS: Albumin 4.2 g/dL (3.2-5.2); Albumin/Globulin Ratio 2.1 (1-3); BUN/Creatinine Ratio 20.3 (8-20); Calcium 9.4 mg/dL (8.6-10.3); EGFR African American 108.1 (>60); EGFR Non-African American 89.3 (>60); Potassium 3.6 mmol/L (3.5-5.0); Total Bilirubin 0.7 mg/dL (0.2-1.0); Total Protein 6.2 g/dL (6.4-8.9)
[2019-10-12] MEDS ORDERED: Iohexol 350* (CONTRAST) 500 ML MDV IV ONE (00:18)
[2019-10-12 02:10] VITALS: BP 134/79
== END 2019-10-12 02:11 | disposition home or self-care (01) ==
LOC: ED 22:18
DX: M54.2 Cervicalgia (principal); R42 Dizziness and giddiness
CPT/HCPCS: 36415; 70498; 80053; 85025; 99282; Q9967

== ENCOUNTER 2020-01-04 13:44 | Emergency (ER) | payer BC ==
--- OUTSIDE RECORDS SUMMARY | 2020-01-04 15:01 | XMS REPORT | Summary of Care ---
:1965 Author Organization [facility] Address [address] [address] Care Team Providers Name Role Phone Echo Cadet Primary Care Provider Reason for Visit Reason Comments Follow Up 2wk to test results Encounter Details Date Type Department Care Team Description 11/11/2019 Office Visit Soledad Cadet Type 2 diabetes mellitus without complication, without long-term current use of insulin (HCC) (Primary Dx ); Practice MD Echo Need for vaccination; [address] [place] [address] [place] [address] [phone] Allergies No Known Allergiesdocumented as of this encounter (statuses as of 11/11/2019) Medications Medication Sig Dispensed Refills Start Date End Date Status Blood Glucose 1 Device by 1 Device 0 10/13/2019 Active Monitor Software Does not apply Does not apply route DeviceIndications: DIRECTED. E11.9 Type 2 diabetes diabetes. mellitus without Brand: complication, Insurance without long-term preferred current use of insulin (HCC) Glucose Blood In 1 Strip by In 100 Each 10/13/2019 Active Vitro Vitro route StripIndications: TWICE DAILY. Type 2 diabetes Dx: E11.9 , mellitus without insurance complication, preferred without long-term current use of insulin (HCC) Lancets Does not 1 Each by Does 100 Each 10/13/2019 Active apply not apply route MiscIndications: TWICE DAILY. Type 2 diabetes Brand: mellitus without insurance complication, preferred Dx: without long-term E11.9 Test current use of Blood Glucose insulin (HCC) BID time(s) A DAY metFORMIN Take 1 Tab by 30 Tab 1 10/27/2019 Active (GLUCOPHAGE) 500 mouth DAILY. MG Oral Tab scopolamine Place 1 mg onto 10 Patch 0 10/27/2019 Active (TRANSDERM SCOP) 1 skin EVERY MG/3DAYS THREE DAYS. Transdermal PATCH 72 HR citalopram Take 1 Tab by 30 Tab 1 09/01/2019 11/11/2019 Discontinued (CELEXA) 20 MG mouth DAILY. Oral Tab MECLIZINE HCL PO Take by mouth. 0 11/11/2019 Discontinued Ondansetron HCl Take by mouth. 0 11/11/2019 Discontinued (ZOFRAN PO) documented as of this encounter (statuses as of 11/11/2019) Active Problems Problem Noted Date Diabetes mellitus type 2, without complication 10/13/2019 Meniere's disease 07/02/2008 Overview: dx in [place] and followed by local nurologist in [place] since 2013--Dr. Polanco Factor 5 Leiden mutation, heterozygous documented as of this encounter (statuses as of 11/11/2019) Immunizations Name Administration Dates Next Due Influenza (IM) Preservative Free 10/27/2019 PNEUMOCOCCAL POLYSACCHARIDE VACCINE 11/11/2019 documented as of this encounter Social History Tobacco Use Types Packs/Day Years [...] Sign Reading Time Taken Comments Blood Pressure 100/58 11/11/2019 11:12 AM EST Pulse 74 11/11/2019 11:12 AM EST Temperature 36.8 11/11/2019 11:12 AM C (98.3 EST F) Respiratory Rate - - Oxygen Saturation 98% 11/11/2019 11:12 AM EST Inhaled Oxygen Concentration - - Weight 63.5 kg (139 lb 14.4 oz) 11/11/2019 11:12 AM EST Height - - Body Mass Index 24.78 11/02/2019 9:01 AM EST documented in this encounter Patient Instructions Patient InstructionsEcho Cadet MD - 11/11/2019 11:00 AM EST1. Increase Metformin to 1000 mg ( 2 tablets of 500 mg) in pm 2. Call in 1 week with sugar diary 3. Follow up in 1 month and as needed 4. Schedule colonoscopyElectronically signed by Echo Cadet MD at 10/2019 11:32 AM EST documented in this encounter Progress Notes Echo Cadet MD - 11/11/2019 11:00 AM EST PATIENT: Lexie Tavarez : 1965 DATE OF SERVICE: 11/11/2019 SUBJECTIVE: 54-y.o. female for follow up of diabetes. Diabetic Review of Systems - medication compliance: compliant all of the time, diabetic diet compliance: compliant most of the time, home glucose monitoring: is performed regularly, fasting values range 100-200, non fasting values range 90-150. Other symptoms and concerns: improved dizziness with Scopolamine patches Audiology evaluation scheduled next week. Also - positive Cologuard test Past Medical History: Diagnosis Date Depression Factor 5 Leiden mutation, heterozygous (HCC) Meniere's disease 07/2008 Dr. Santiago Current Outpatient Medications Medication Sig Blood Glucose Monitor Software Does not apply Device 1 Device by Does not apply route DIRECTED. E11.9 diabetes. Brand: Insurance preferred Glucose Blood In Vitro Strip 1 Strip by In Vitro route TWICE DAILY. Dx: E11.9 , insurance preferred Lancets Does not apply Misc 1 Each by Does not apply route TWICE DAILY. Brand: insurance preferred Dx: E11.9 Test Blood Glucose BID time(s) A DAY metFORMIN (GLUCOPHAGE) 500 MG Oral Tab Take 1 Tab by mouth DAILY. scopolamine (TRANSDERM SCOP) 1 MG/3DAYS Transdermal PATCH [address] 1 mg onto skin EVERY THREE DAYS. No current facility-administered medications for this visit. OBJECTIVE: BP 100/58 (BP Location: Left arm, Patient Position: Sitting) | Pulse 74 | Temp 98.3 F (36.8 C) | Wt 139 lb 14.4 oz (63.5 kg) | SpO2 98% | BMI 24.78 kg/m General appearance: alert, well appearing, and in no distress. I have recommended the following steps for improving diabetic care and outcome to her: referral to Diabetic Education department and medications side compliance discussed.. A follow up visit will be scheduled in the near future to review and reinforce the importance of careful diabetic control to improve usp outcomes. Pelvic US: 1. Nonvisualization of the right ovary. 2. Endometrium measures up to 0.8 cm. There is a small amount of fluid within the endometrial canal which is included in the measurement. The significance of an endometrial measurement greater than 4 mm incidentally discovered in a postmenopausal patient without bleeding has not been established. This finding need not routinely trigger evaluation, although an individualized assessment based on patient characteristics and risk factors is appropriate. Patient advised on tests results ICD-9-CM ICD-10-CM 1. Type 2 diabetes mellitus without complication, without long-term current use of insulin (HCC) 250.00 E11.9 2. Need for vaccination V05.9 Z23 [place] PNEUMOVAX(DX CODE Z23) 3. Dizziness 780.4 R42 Patient Instructions 1. Increase Metformin to 1000 mg ( 2 tablets of 500 mg) in pm 2. Call in 1 week with sugar diary 3. Follow up in 1 month and as needed 4. Schedule colonoscopy Author: Echo Cadet MD 11/11/2019 11:53 documented in this encounter Plan of Treatment Date Type Specialty Care Team Description 12/07/2019 Ancillary Procedure Radiology 12/10/2019 GI Procedure Gastroenterology Aneta Cordero MD [address] [place] [address] [phone] 12/11/2019 Office Visit Family Practice Echo Cadet MD [address] [place] [address] [phone] 12/23/2019 Ocular Visit Optometry Seferino Garcia, OD [address] [place] [address] [phone] 01/26/2020 Lab Internal Medicine 02/01/2020 Office Visit Internal Medicine Damaris Bhakta [address] [place], [place] [id number] Health Maintenance Due Date Last Done Comments Cologuard Screening 1965 Diabetic Eye Exam 1965 PNEUMOCOCCAL 0-64 YRS (1 of 1 1973 - PPSV23) DTaP/Tdap/Td Vaccines ( - 1978 Tdap) Colonoscopy 2017 HEMOGLOBIN A1C 01/13/2020 10/13/2019, 03/14/2016 DEPRESSION SCREENING 09/01/2020 09/01/2019, 09/01/2019 LIPID DISORDER SCREENING 10/02/2020 10/02/2019, 03/08/2016 FOOT EXAM 10/27/2020 10/27/2019, 10/27/2019 URINE MICROALBUMIN 10/27/2020 10/27/2019 ZOSTER IMMUNIZATION SERIES (1 10/27/2020 Postponed from 2017 of 2) (Vaccine not available) MAMMOGRAM (SCREENING) 10/28/2020 10/28/2019 PAP SMEAR 10/02/2022 10/02/2019 INFLUENZA VACCINE Completed 10/27/2019 HEPATITIS A IMMUNIZATION Aged Out No longer eligible based SERIES on patient's age to complete this topic HPV IMMUNIZATION SERIES Aged Out No longer eligible based on patient's age to complete this topic MENINGOCOCCAL VACCINE IMM Aged Out No longer eligible based on patient's age to complete this topic documented as of this encounter Goals Goal Patient Goal Associated Recent Patient-Stated? Author Type Problems Progress Depression Depression 16 No bharath Cadet (PHQ-9) (09/01/2019 Echo, total score < 5 8:18 AM EDT) Note: This is an individualized treatment (depression) goal for Lexie Tavarez: Displayed above is your goal for a depression screening (PHQ-9) score that would indicate good control of your depression. Glycohemoglobin A1c < 7.0 Diabetes 8.7 (10/13/2019 10:49 No Echo Cadet, AM EST) Note: This is an individualized treatment (diabetes control, HgbA1C) goal for Lexie Kaurastrid: Displayed above is your progress towards your HgbA1C goal. Your goal is shown above (on the left); your most recent HgbA1C is shown on the right. Note that lower numbers are better. Keep a regular sleep schedule Lifestyle No Echo Cadet MD Note: This is an individualized lifestyle goal for Lexie Tavarez: Please maintain a regular sleep schedule. This may help with some symptoms of depression. Keep immunizations current Lifestyle Echo Shirley MD Note: This is an individualized lifestyle goal for Lexie Tavarez: Please be sure to keep up-to-date on recommended immunizations. For example, this would include a yearly influenza vaccine. Immunization status can be seen by looking at the Health Maintenance sections of your e[employer], Plan of Care, and any After Visit Summaries. Take all prescribed medications as Self-management No Echo Cadet MD directed Note: This is an individualized [...] filedocumented in this encounter Visit Diagnoses Diagnosis Need for vaccination Need for prophylactic vaccination and inoculation against unspecified single disease Type 2 diabetes mellitus without complication, without long-term current use of insulin (HCC) Dizziness Dizziness and giddiness documented in this encounter Insurance Payer Benefit Plan / Subscriber ID Effective Dates Phone Address Type Group [employer] xxxxxxxxxxxx 2018-Present [employer] documented as of this encounter"
--- OUTSIDE RECORDS SUMMARY | 2020-01-04 15:01 | XMS REPORT | Summary of Care ---
:1965 Author Organization [facility] Address [address] [address] Care Team Providers Name Role Phone Echo Cadet Primary Care Provider Reason for Visit Reason Comments Follow Up pt presents for follow up with diabetes Encounter Details Date Type Department Care Team Description 12/28/2019 Office Visit [facility] Helio Type 2 diabetes Practice MD Echo mellitus without [address] [facility] [facility] [address] [address] complication, [place] [address] [place] [address] long-term current use [phone] of insulin (HCC) (Primary Dx) Allergies No Known Allergiesdocumented as of this encounter (statuses as of 12/28/2019) Medications Medication Sig Dispensed Refills Start Date End Date Status Blood Glucose 1 Device by 1 Device 0 10/13/2019 Active Monitor Software Does not apply Does not apply route DeviceIndication DIRECTED. E11.9 s: Type 2 diabetes. diabetes Brand: mellitus without Insurance complication, preferred without long-term current use of insulin (HCC) Glucose Blood In 1 Strip by In 100 Each 10/13/2019 Active Vitro Vitro route StripIndications TWICE DAILY. : Type 2 Dx: E11.9 , diabetes insurance mellitus without preferred complication, without long-term current use of insulin (HCC) Lancets Does not 1 Each by Does 100 Each 10/13/2019 Active apply not apply route MiscIndications: TWICE DAILY. Type 2 diabetes Brand: mellitus without insurance complication, preferred Dx: without E11.9 Test long-term Blood Glucose current use of BID time(s) A insulin (HCC) DAY sitagliptin Take 1 Tab by 30 Tab 1 12/28/2019 Active (JANUVIA) 50 MG mouth DAILY. Oral Tab scopolamine Place 1 mg onto 10 Patch 0 11/12/2019 Discontinued (TRANSDERM SCOP) skin EVERY 0 (Other) 1 MG/3DAYS THREE DAYS. Transdermal PATCH 72 HR metFORMIN Take 2 Tabs by 120 Tab 1 11/30/2019 Discontinued (GLUCOPHAGE) 500 mouth TWICE 0 (Other) MG Oral Tab DAILY. ondansetron Q6H 0 10/09/2019 Discontinued (No (ZOFRAN) 4 MG 0 longer clinically Oral Tab indicated) citalopram EVERY DAY 0 10/09/2019 Discontinued (No (CELEXA) 20 MG 0 longer clinically Oral Tab indicated) HDE-VBr-TpVh-Mily Take 1 Each by 1 Each 0 12/16/2019 Discontinued (No ulf-Na Asc-C mouth Bowel 0 longer clinically (MOVIPREP) 100 g Prep. May indicated) Oral Recon substitute SolnIndications: Colyte, if Encounter for Moviprep not screening covered by colonoscopy patient's insurance. Thank you. documented as of this encounter (statuses as of 12/28/2019) Active Problems Problem Noted Date Diabetes mellitus type 2, without complication 10/13/2019 Meniere's disease 07/02/2008 Overview: dx in [place] and followed by local nurologist in [place] since 2013--Dr. Polanco Factor 5 Leiden mutation, heterozygous documented as of this encounter (statuses as of 12/28/2019) Immunizations Name Administration Dates Next Due Influenza [...] Sign Reading Time Taken Comments Blood Pressure 118/70 12/28/2019 9:21 AM EST Pulse 75 12/28/2019 9:21 AM EST Temperature - - Respiratory Rate - - Oxygen Saturation 99% 12/28/2019 9:21 AM EST Inhaled Oxygen Concentration - - Weight 61.6 kg (135 lb 11.2 oz) 12/28/2019 9:21 AM EST Height 160 cm (5' 3") 12/28/2019 9:21 AM EST Body Mass Index 24.04 12/28/2019 9:21 AM EST documented in this encounter Patient Instructions Patient InstructionsEcho Cadet MD - 12/28/2019 9:20 AM EST1. Take Januvia 50 mg once a day 2. Call in 1 week with sugar diary 3. Check sugars 2 times a day: before breakfast and before dinner. Fasting sugar should be 80 -110, non fasting sugar checked at least 2 hours after meal - below 140. documented in this encounter Progress Notes Echo Cadet MD - 12/28/2019 9:20 AM EST PATIENT: Lexie Tavarez : 1965 DATE OF SERVICE: 12/28/2019 SUBJECTIVE: 54-y.o. female for follow up of diabetes. Diabetic Review of Systems - medication compliance: noncompliant much of the time - stopped Metformin due to upset stomach, diabetic diet compliance: compliantmost of the time, home glucose monitoring: is performed regularly, fasting values range 130-180, nonfasting values range 120-200. Other symptoms and concerns: had colonoscopy done that showed colon mass. Biopsy - tubular adenoma. Had repeat colonoscopy done with removal of the lesion The biopsy is pnd Past Medical History: Diagnosis Date Depression Factor [...] Test Blood Glucose BID time(s) A DAY sitagliptin (JANUVIA) 50 MG Oral Tab Take 1 Tab by mouth DAILY. No current facility-administered medications for this visit. OBJECTIVE: BP 118/70 (BP Location: Left arm, Patient Position: Sitting) | Pulse 75 | Ht 5 ' 3" (1.6 m) | Wt 135 lb 11.2 oz (61.6 kg) | SpO2 99% | BMI 24.04 kg/m General appearance: alert, and anxious. ICD-9-CM ICD-10-CM 1. Type 2 diabetes mellitus without complication, without long-term current use of insulin (HCC) 250.00 E.9 Patient Instructions 1. Take Januvia 50 mg once a day 2. Call in 1 week with sugar diary 3. Check sugars 2 times a day: before breakfast and before dinner. Fasting sugar should be 80 -110, non fasting sugar checked at least 2 hours after meal - below 140. Author: Echo Cadet MD 12/28/2019 09:53 documented in this encounter Plan of Treatment Date Type Specialty Care Team Description 12/31/2019 Ancillary Procedure Radiology 01/05/2020 Office Visit General Surgery Reyes Matthew MD [address] [address] [phone] 01/26/2020 Lab Internal Medicine 02/01/2020 Office Visit Internal Medicine Damaris Bhakta, RD [address] [place] [address] [phone] 12/27/2020 Ocular Visit Optometry Seferino Garcia, OD [address] [place], [place] [id number] Health Maintenance Due Date Last Done Comments HEMOGLOBIN A1C 01/13/2020 10/13/2019, 03/14/2016 DTaP/Tdap/Td Vaccines ( - 03/23/2020 Postponed from Tdap) 1978 (Patient refused) DEPRESSION SCREENING 09/01/2020 09/01/2019, 09/01/2019 LIPID DISORDER SCREENING 10/02/2020 10/02/2019, 03/08/2016 FOOT EXAM 10/27/2020 10/27/2019, 10/27/2019 URINE MICROALBUMIN 10/27/2020 10/27/2019 ZOSTER IMMUNIZATION SERIES 10/27/2020 Postponed from (1 of 2) 2017 (Vaccine not available) MAMMOGRAM (SCREENING) 10/28/2020 10/28/2019 Diabetic Eye Exam 12/23/2021 12/23/2019, 12/23/2019, 12/23/2019, Additional history exists PAP SMEAR 10/02/2022 10/02/2019 Cologuard Screening 10/23/2022 10/23/2019 Colonoscopy 12/25/2029 12/25/2019, 12/10/2019 INFLUENZA VACCINE Completed 10/27/2019 PNEUMOCOCCAL 0-64 YRS Completed 11/11/2019 HEPATITIS A IMMUNIZATION Aged Out No longer eligible SERIES based on patient's age to complete this [...] treatment (diabetes control, HgbA1C) goal for Lexie Aundrealeslie: Displayed above is your progress towards your [...] symptoms of depression. Keep immunizations current Lifestyle No Echo Cadet MD Note: This [...] filedocumented in this encounter Visit Diagnoses Diagnosis Type 2 diabetes mellitus without complication, without long-term current use of insulin (HCC) documented in this encounter Insurance Payer Benefit Plan / Subscriber ID Effective Dates Phone Address Type Group [employer] xxxxxxxxxxxx 2018-Present [employer] documented as of this encounter
--- OUTSIDE RECORDS SUMMARY | 2020-01-04 15:01 | XMS REPORT | Continuity of Care Document ---
:1965 External Reference #:[id number] Author Name Francisco Johnson MD Address [address] [place] [address] Care Team Providers Name Role Phone Rdoney Polanco M.D. - Neurology Care Team Information Counter Clerk [phone] Chi Larson M.D. - Internal Care Team Information Counter Clerk [phone] Medicine Problems Active Problems Provider Date Headache Francisco Johnson MD Onset: 04/19/2016 Meniere's disease, right ear Francisco Johnson MD Onset: 04/19/2016 Unspecified sensorineural hearing loss Francisco Johnson MD Onset: 04/19/2016 Sensorineural hearing loss Francisco Johnson MD Onset: 09/20/2016 Chronic rhinitis Francisco Johnson MD Onset: 01/07/2017 Acute sinusitis Francisco Johnson MD Onset: 01/13/2018 Central perforation of tympanic membrane Francisco Johnson MD Onset: 07/14/2018 Hypertrophy of nasal turbinates Francisco Johnson MD Onset: 03/26/2019 Social History Type Date Description Comments Sex Unknown Tobacco Use Start: Unknown Never Smoked Cigarettes Tobacco Use Start: Unknown Never Smoked Cigars Tobacco Use Start: Unknown Never Smoked A Pipe Smokeless Tobacco Never Used Smokeless Tobacco ETOH Use Denies alcohol use Tobacco Use Start: Unknown Patient has never smoked Smoking Status Reviewed: 05/25/19 Patient has never smoked Allergies, Adverse Reactions, Alerts Description No Known Drug Allergies Medications Active Medications SIG Qnty Indications Ordering Provider Date Ondansetron HCL Unknown 4mg Tablets Citalopram Hydrobromide Aleja Meza, N.P. 20mg Tablets Metformin HCL Echo Cadet M.D. 500mg Tablets Scopolamine Echo Cadet M.D. 1mg/3Days Patches 72HR History Medications Ipratropium [place] 1 puff both 1units J31.0 Francisco Johnson MD 2018 - sides every 6 10/14/2019 0.06% Solution hours as needed Immunizations Description No Information Available Vital Signs Date Vital Result Comment 11/19/2019 9:01am Weight 145.00 lb Weight 65.772 kg Height 61 inches 5'1" Height in cm's 154.9 cm BMI (Body Mass Index) 27.4 kg/m2 10/15/2019 8:43am Weight 145.00 lb Weight 65.772 kg Height 61 inches 5'1" Height in cm's 154.9 cm BMI (Body Mass Index) 27.4 kg/m2 Results Description No Information Available Procedures Date Code Description Status 11/19/2019 74552 Tympanometry Completed 11/19/2019 53511 Comprehensive Audiogram Completed Medical Devices Description No Information Available Encounters Type Date Location Provider Dx Diagnosis Office Visit 11/19/2019 [place],After Francisco Johnson H81.01 Meniere's disease, 9:15a 12/02/07 right ear 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, right ear Office Visit 10/15/2019 [place],After Francisco Johnson H81.01 Meniere's 8:30a 12/02/07 disease, right ear 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, right ear Office Visit 07/16/2019 [place],After Francisco Johnson H72.01 Central 8:45a 12/02/07 perforation of tympanic membrane, right ear J31.0 Chronic rhinitis Assessments Date Code Description Provider 11/19/2019 H81.01 Meniere's disease, right ear Francisco Johnson MD 11/19/2019 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, right ear Francisco Johnson MD 10/15/2019 H81.01 Meniere's disease, right ear Francisco Johnson MD 10/15/2019 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 Her syncopal symptoms are probably not related to her inner ear disorder. 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
[2020-01-04] MEDS ORDERED: Acetaminophen TAB* 325 MG PO ONE (18:08)
--- NOTE | 2020-01-04 18:09 | ED ---
Headache - HPI Summary HPI Summary: Patient complains of "head bond" that lasted for seconds this morning. States no prior history of same. Unable to describe specifically. States she has had a dull headache since, one episode of blurred vision lasting for seconds. History of headaches 2 times a week. Denies fever, cough, sore throat, neck stiffness, CP, SOB, N/V/D, abdominal pain, change in urine, change in BM, neurological deficits, imbalance, lightheadedness. Medical history is DM, headaches. Positive smoker, denies EtOH or recreational drug use. - History Of Current Complaint Chief Complaint: EDHeadache Stated Complaint: HEADACHE/BLURRY VISION PER PT Time Seen by Provider: 01/04/20 17:00 Hx Obtained From: Patient Onset/Duration: Sudden Onset, Started hours ago Initially Headache Was: Moderate Currently Pain Is: Moderate Timing: Constant Character: Dull Location of Headache: Frontal Aggravating Factor: Nothing Allevating Factors: Nothing Associated Signs And Symptoms: Visual Changes - Allergies/Home Medications Allergies/Adverse Reactions: Allergies Allergy/AdvReac Type Severity Reaction Status Date / Time No Known Allergies Allergy Verified 01/04/20 13:58 Home Medications: Home Medications NK [No Home Medications Reported] 01/04/20 [History Confirmed 01/04/20] PMH/Surg Hx/FS Hx/Imm Hx Endocrine/Hematology History: Denies: Hx Diabetes, Hx Thyroid Disease Cardiovascular History: Reports: 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 30 YRS AGO- NO F/U PER P Denies: Hx Hypertension, Hx Pacemaker/ICD, Other Cardiovascular Problems/ Disorders Respiratory History: Denies: Hx Asthma, Hx Chronic Obstructive Pulmonary Disease (COPD), Other Respiratory Problems/Disorders GI History: Denies: Hx Ulcer History: Denies: Hx Renal Disease Musculoskeletal History: Denies: Hx Gout Sensory History: Reports: Hx Contacts or Glasses - GLASSES-REPORTS DOES NOT WEAR Denies: Hx Hearing Aid Opthamlomology History: Reports: Hx Contacts or Glasses - GLASSES-REPORTS DOES NOT WEAR EENT History: Denies: Hx Deafness Neurological History: Reports: Other Neuro Impairments/Disorders - HX OF VERTIGO - LAST ABOUT 6 MONTHS AGO Psychiatric History: Denies: Hx Panic Disorder - Surgical History Surgery Procedure, Year, and Place: X2 _ 2ND C SECTION ALSO HAD A TUBAL [id number]. FOOT - as a child - STEPPED ON A NAIL-JOVANI. RIGHT OVARY [id number]. RIGHT EAR TUBE PLACED-RUPARELIA- OFFICE Hx Anesthesia Reactions: No Infectious Disease History: No Infectious Disease History: Denies: Hx Clostridium Difficile, Hx Hepatitis, Hx Human Immunodeficiency Virus (HIV), Hx of Known/Suspected MRSA, Hx Shingles, Hx Tuberculosis, Hx Known/ Suspected VRE, Hx Known/Suspected VRSA, History Other Infectious Disease, Traveled Outside the [place] in Last 30 Days - Family History Known Family History: Positive: Hypertension - Social History Alcohol Use: None Substance Use Type: Reports: None Smoking Status (MU): Never Smoked Tobacco Have You Smoked in the Last Year: No Review of Systems Constitutional: Negative Eyes: Negative ENT: Negative Cardiovascular: Negative Respiratory: Negative Gastrointestinal: Negative Genitourinary: Negative Musculoskeletal: Negative Skin: Negative Positive: Headache Psychological: Normal All Other Systems Reviewed And Are Negative: Yes Physical Exam - Summary Physical Exam Summary: Neuro exam normal. Visual mac intact. Triage Information Reviewed: Yes Vital Signs On Initial Exam: Initial Vitals Temp Pulse Resp BP Pulse Ox 98.2 F 81 19 134/79 99 01/04/20 13:54 01/04/20 13:54 01/04/20 13:54 01/04/20 13:54 01/04/20 13:54 Vital Signs Reviewed: Yes Appearance: Positive: Well-Appearing Head/Face: Positive: Normal Head/Face Inspection Eyes: Positive: Normal Neck: Positive: Supple Respiratory/Lung Sounds: Positive: Clear to Auscultation Cardiovascular: Positive: Normal Abdomen Description: Positive: Nontender Musculoskeletal: Positive: Normal Neurological: Positive: Normal Psychiatric: Positive: Normal AVPU Assessment: Alert - [place] Coma Scale Best Eye Response: 4 - Spontaneous Best Motor Response: 6 - Obeys Commands Best Verbal Response: 5 - Oriented Coma Scale Total: 15 Procedures - Sedation Patient Received Moderate/Deep Sedation with Procedure: No Diagnostics - Vital Signs Vital Signs Temp Pulse Resp BP Pulse Ox 01/04/20 15:35 98.5 F 70 14 108/60 99 01/04/20 13:54 98.2 F 81 19 134/79 99 - Laboratory Lab Statement: Any lab studies that have been ordered have been reviewed, and results considered in the medical decision making process. Headache Course/Dx - Course Course Of Treatment: Patient complains of "head bond" that lasted for seconds this morning. States no prior history of same. Unable to describe specifically. States she has had a dull headache since, one episode of blurred vision lasting for seconds. History of headaches 2 times a week. Denies fever , cough, sore throat, neck stiffness, CP, SOB, N/V/D, abdominal pain, change in urine, change in BM, neurological deficits, imbalance, lightheadedness. Medical history is DM, headaches. Positive smoker, denies EtOH or recreational drug use. Vital signs within normal limits. Normal neuro exam. No indication for imaging. - Diagnoses Provider Diagnoses: Headache Discharge ED - Sign-Out/Discharge Documenting (check all that apply): Patient Departure - Discharge Plan Condition: Stable Disposition: HOME Patient Education Materials: Acute Headache (ED) Referrals: Echo Cadet MD [Primary Care Provider] - Additional Instructions: Follow-up with primary care. Return to the ED for any new or worsening symptoms. - Billing Disposition and Condition Condition: STABLE Disposition: Home - Attestation Statements Provider Attestation: I was available for consultation for this patient. I did not evaluate the patient, or participate in any medical decision making or disposition decisions unless I am specifically named in the chart as having consulted on the patient. If I have consulted on the patient, please see my own ED note on the patient encounter. Nestor Coleman MD
[2020-01-04 18:19] VITALS: BP 132/77
== END 2020-01-04 18:20 | disposition home or self-care (01) ==
LOC: ED 13:44
DX: R51 Headache (principal); H53.8 Other visual disturbances; E11.9 Type 2 diabetes mellitus without complications; F17.200 Nicotine dependence, unspecified, uncomplicated
CPT/HCPCS: 99282; A9270-GY

== ENCOUNTER 2020-04-25 17:20 | Inpatient (IN) ==
[2020-04-25 18:57] LABS: ABS Lymphocytes 0.8 10^3/ul (1.0-4.8); ABS Monocytes 0.5 10^3/ul (0-0.8); Eosinophil % 0.2 %; Hematocrit 41 % (35-47); Hemoglobin 13.8 g/dL (12.0-16.0); Lymphocyte % 6.3 %; Mean Corpuscular HGB Conc 34 g/dL (31-36); Mean Corpuscular Hemoglobin 27 pg (27-31); Mean Corpuscular Volume 80 fL (80-97); Mean Platelet Volume 7.3 fL (7.4-10.4); Nucleated Red Blood Cells % 0.1; Platelet Count 259 10^3/uL (150-450); Red Blood Count 5.04 10^6 /uL (3.70-4.87); Red Cell Distribution Width 14 % (10-15); White Blood Count 11.9 10^3/uL (3.5-10.8)
[2020-04-25 19:12] LABS: Albumin 4.5 g/dL (3.2-5.2); Albumin/Globulin Ratio 1.7 (1-3); BUN/Creatinine Ratio 23.7 (8-20); C Reactive Protein 7.11 mg/L (<8.01); EGFR African American 96.7 (>60); EGFR Non-African American 79.9 (>60); Globulin 2.6 g/dL (2-4); Potassium 3.4 mmol/L (3.5-5.0); Total Bilirubin 0.5 mg/dL (0.2-1.0); Total Protein 7.1 g/dL (6.4-8.9)
[2020-04-25] MEDS ORDERED: oxyCODONE/Acetamin 5/325 mg TAB PO PRN (20:32)
[2020-04-25] MEDS ORDERED: Morphine 2 MG/ML SYRINGE IV PRN (20:42)
[2020-04-25] MEDS ORDERED: Enoxaparin 40 MG/0.4 ML SYR(*) SUBCUT SCH (21:00)
[2020-04-25] MEDS ORDERED: Polyethylene Glycol 3350 17 GM PACKET PO PRN (21:18)
[2020-04-25] MEDS ORDERED: Senna TAB 8.6 mg TAB PO PRN (21:18)
[2020-04-25] MEDS ORDERED: Magnesium Hydroxide LIQ 30 ML UDC PO PRN (21:18)
[2020-04-25] MEDS ORDERED: Dextrose 50% Syringe 50 ml 25 GM/50 ML SYRINGE IV PUSH PRN (21:42)
[2020-04-25 22:02] LABS: Urine Appearance Clear; Urine Bilirubin Negative (Negative); Urine Blood 1+ (Negative); Urine Color Yellow; Urine Glucose Negative (Negative); Urine Ketones Trace (Negative); Urine Nitrite Negative (Negative); Urine Protein Negative (Negative); Urine Specific Gravity 1.016 (1.010-1.030); Urine Urobilinogen Negative (Negative)
[2020-04-25 22:10] LABS: Urine Bacteria Absent (Absent); Urine Red Blood Cell Trace(0-2/hpf) (Absent); Urine Squamous Epithelial Cell Present (Absent); Urine White Blood Cell Trace(0-5/hpf) (Absent)
[2020-04-25] MEDS ORDERED: Potassium Chlor 20 meq TAB.ER PO ONE (23:00)
[2020-04-25] MEDS: Morphine 2 MG/ML SYRINGE IV PRN (23:51)
[2020-04-26] MEDS: NS 0.9% 1000 ml BAG 1,000 ML IV SCH ×2 (00:37→14:01)
[2020-04-26] MEDS: Morphine 2 MG/ML SYRINGE IV PRN ×5 (01:51→13:55)
[2020-04-26 06:17] LABS: ABS Eosinophils 0.1 10^3/ul (0-0.6); ABS Lymphocytes 1.5 10^3/ul (1.0-4.8); ABS Monocytes 0.7 10^3/ul (0-0.8); Eosinophil % 1.2 %; Hematocrit 37 % (35-47); Hemoglobin 12.8 g/dL (12.0-16.0); Lymphocyte % 17.7 %; Mean Corpuscular HGB Conc 35 g/dL (31-36); Mean Corpuscular Hemoglobin 28 pg (27-31); Mean Corpuscular Volume 80 fL (80-97); Mean Platelet Volume 7.5 fL (7.4-10.4); Platelet Count 232 10^3/uL (150-450); Red Blood Count 4.62 10^6 /uL (3.70-4.87); Red Cell Distribution Width 14 % (10-15); White Blood Count 8.6 10^3/uL (3.5-10.8)
[2020-04-26 06:27] LABS: INR 1.1 (0.82-1.09)
[2020-04-26 06:33] LABS: BUN/Creatinine Ratio 23.2 (8-20); Calcium 8.9 mg/dL (8.6-10.3); EGFR African American 137.6 (>60); EGFR Non-African American 113.7 (>60); Potassium 3.3 mmol/L (3.5-5.0)
[2020-04-26] MEDS ORDERED: Famotidine IV 10 MG/ML 2 ml VIAL (20 mg) IV ONE (15:04)
[2020-04-26] MEDS ORDERED: ceFAZolin 2 GM PREMIX in ORs 2 GM/50 ML BAG ONE (15:56)
[2020-04-26] MEDS ORDERED: Lactated Ringers 1000 ml BAG 1,000 ML IV SCH ×2 (16:00→18:42)
[2020-04-26] MEDS ORDERED: fentaNYL 100 mcg/2 ml 50 MCG/ML VIAL ONE ×3 (16:04→19:10)
[2020-04-26] MEDS ORDERED: Midazolam 2 mg/2 ml VIAL 1 mg/ml 2 ml VIAL (2 mg) ONE (16:04)
[2020-04-26] MEDS ORDERED: Lidocaine 2% PF 5 ML VIAL ONE (16:04)
[2020-04-26] MEDS ORDERED: Dexamethasone IV 4 MG/ML VIAL 1 ml VIAL ONE (16:05)
[2020-04-26] MEDS ORDERED: Rocuronium 50 mg VIAL 10 mg/ml 5 ml VIAL (50 mg) ONE (16:05)
[2020-04-26] MEDS ORDERED: Propofol 10 MG/ML 20 ML BTL ONE (16:05)
[2020-04-26] MEDS ORDERED: Famotidine IV 10 MG/ML 2 ml VIAL (20 mg) ONE (16:16)
[2020-04-26] MEDS ORDERED: Phenylephrine 40 mcg/mL 10mL (400mcg) SYRINGE ONE (16:57)
[2020-04-26] MEDS ORDERED: Ondansetron 4 mg VIAL 2 MG/ML 2 ml VIAL IV PRN (17:07)
[2020-04-26] MEDS ORDERED: Naloxone 0.4 mg VIAL 0.4 mg/ml 1 ml VIAL IV PRN (17:07)
[2020-04-26] MEDS ORDERED: DiMENhydriNATE IV 50 mg/ml 1 ml VIAL IV PUSH PRN (17:07)
[2020-04-26] MEDS ORDERED: fentaNYL 100 mcg/2 ml 50 MCG/ML VIAL IV PRN (17:07)
[2020-04-26] MEDS ORDERED: Acetaminophen IV 1 GM/100ML 100 ML ONE (18:00)
[2020-04-26] MEDS ORDERED: Ondansetron 4 mg VIAL 2 MG/ML 2 ml VIAL ONE (18:25)
[2020-04-26] MEDS: oxyCODONE/Acetamin 5/325 mg TAB PO PRN (22:45)
[2020-04-27] MEDS: Insulin LISPRO 100 units/ml(*) SUBCUT SCH ×4 (00:03→18:33)
[2020-04-27] MEDS: ceFAZolin 1 GM* X 3 DOSES POST-OP Q8H (AddVan) IVPB SCH ×3 (01:27→17:33)
[2020-04-27] MEDS: oxyCODONE/Acetamin 5/325 mg TAB PO PRN ×5 (03:03→21:35)
[2020-04-27 06:19] LABS: ABS Lymphocytes 0.8 10^3/ul (1.0-4.8); ABS Monocytes 0.7 10^3/ul (0-0.8); Eosinophil % 0.4 %; Hematocrit 30 % (35-47); Hemoglobin 10.7 g/dL (12.0-16.0); Lymphocyte % 7.8 %; Mean Corpuscular HGB Conc 35 g/dL (31-36); Mean Corpuscular Hemoglobin 28 pg (27-31); Mean Corpuscular Volume 80 fL (80-97); Mean Platelet Volume 7.3 fL (7.4-10.4); Platelet Count 203 10^3/uL (150-450); Red Blood Count 3.77 10^6 /uL (3.70-4.87); Red Cell Distribution Width 14 % (10-15); White Blood Count 10.1 10^3/uL (3.5-10.8)
[2020-04-27 06:52] LABS: BUN/Creatinine Ratio 15.5 (8-20); Calcium 8.7 mg/dL (8.6-10.3); EGFR African American 132.1 (>60); EGFR Non-African American 109.2 (>60); Potassium 3.5 mmol/L (3.5-5.0)
[2020-04-27] MEDS ORDERED: Enoxaparin 40 MG/0.4 ML SYR(*) SUBCUT ONE (09:00)
[2020-04-28 05:03] LABS: ABS Eosinophils 0.2 10^3/ul (0-0.6); ABS Monocytes 0.6 10^3/ul (0-0.8); Hematocrit 28 % (35-47); Hemoglobin 9.7 g/dL (12.0-16.0); Lymphocyte % 13.6 %; Mean Corpuscular HGB Conc 35 g/dL (31-36); Mean Corpuscular Hemoglobin 29 pg (27-31); Mean Corpuscular Volume 81 fL (80-97); Mean Platelet Volume 7.2 fL (7.4-10.4); Platelet Count 182 10^3/uL (150-450); Red Blood Count 3.41 10^6 /uL (3.70-4.87); Red Cell Distribution Width 14 % (10-15); White Blood Count 7.6 10^3/uL (3.5-10.8)
[2020-04-28 05:18] LABS: BUN/Creatinine Ratio 17.5 (8-20); Calcium 8.4 mg/dL (8.6-10.3); EGFR African American 134.8 (>60); EGFR Non-African American 111.4 (>60); Potassium 3.3 mmol/L (3.5-5.0)
[2020-04-28] MEDS: Insulin LISPRO 100 units/ml(*) SUBCUT SCH ×3 (08:31→17:49)
[2020-04-28] MEDS: oxyCODONE/Acetamin 5/325 mg TAB PO PRN ×4 (08:32→22:24)
[2020-04-28] MEDS ORDERED: Ondansetron 4 mg VIAL 2 MG/ML 2 ml VIAL IV PRN (09:45)
[2020-04-28] MEDS ORDERED: Ondansetron 4 mg VIAL 2 MG/ML 2 ml VIAL ONE (09:46)
[2020-04-28] MEDS ORDERED: Potassium Chlor 20 meq TAB.ER PO ONE (14:53)
[2020-04-29] MEDS: oxyCODONE/Acetamin 5/325 mg TAB PO PRN ×2 (04:24→08:20)
[2020-04-29] MEDS: Insulin LISPRO 100 units/ml(*) SUBCUT SCH (07:37)
[2020-04-29 11:40] VITALS: BP 137/67
== END 2020-04-29 12:25 | DRG 301 ==
LOC: ED 17:20 → SSU 20:32
PROVIDERS: ADMIT Nurse Practitioner; ATTEND Internal Medicine